=== PATIENT | male | born 1990 | race Caucasian/White ===

== ENCOUNTER 2018-06-11 07:07 | Emergency (ER) | payer MEDICAID ==
--- NOTE | 2018-06-11 07:12 | EDPHY ---
H & P Time Seen by Provider: 06/11/18 07:11 - Medical/Surgical History Hx Diabetes: No - Social History Smoking Status: Never smoked Constitutional: Initial Vital Signs Temperature (C) 36.8 C 06/11/18 07:10 Heart Rate 75 06/11/18 07:10 Respiratory Rate 18 06/11/18 07:10 Blood Pressure 151/101 H 06/11/18 07:10 O2 Sat (%) 97 06/11/18 07:10 O2 Delivery Mode Room Air Allergies/Adverse Reactions: No Known Allergies Allergy (Unverified 08/25/14 11:32) Home Medications: Medication Instructions Recorded NK [No Known Home Meds] 06/11/18 Medical Decision Making - Diagnostics Imaging Results: Imaging Impressions Head CT 06/11/18 07:31 Impression: No acute intracranial findings. If symptoms persist and clinical suspicion warrants, consider MRI. Findings discussed with Florentino Nguyen answering for Juancarlos Reed MD 2018 at 8:07. Imaging: Discussed imaging studies w/ call center representative Radiologist, I viewed and interpreted images myself ED Course/Re-evaluation: CHIEF COMPLAINT: Migraine HISTORY OF PRESENT ILLNESS: The patient is a 27 y/o male complaining of an "indescribable feeling" in his head. The patient woke up at 6:00 am, 1.5 hours ago, and felt like his ear was clogged. He stuck a q-tip in his ear and subsequently developed his symptoms. He states his symptoms are "not a headache" as it is "indescribable" but it is located right above his eyebrows. It feels like "squeezing blood out of a rock" . He gets the symptoms in waves of an "explosion which sends a shock wave through his body". He also is "smelling metals" in his sinuses. The patient's mother states that the patient started a dietary cleanse (eats proteins and vegetables) 4 days ago. Due to this cleanse the patient might dehydrated due to the cleanse. No fever, body aches, lightheadedness, chest pain, heart palpitations, shortness of breath, cough, abdominal pain, urinary or bowel complaints, numbness, paresthesias. REVIEW OF SYSTEMS: A 10 point review of systems was performed and is negative with the exception of the elements mentioned in the history of present illness. PHYSICAL EXAM: HR, BP, O2 Sat, RR. Temp noted General Appearance: Clasping temples with sunglasses on in a dark room, alert, well hydrated, appropriate, and non-toxic appearing. Head: Atraumatic without scalp tenderness or obvious injury Eyes: Pupils equal, round, reactive to light and accommodation, EOMI, no trauma , no injection. Ears: Clear bilaterally, no perforation, normal landmarks Nose: Atraumatic, no rhinorrhea, clear. Throat: There is no erythema or exudates, no lesions, normal tonsils, mucus membranes moist. Neck: Supple, 2+ carotid upstroke, nontender, no lymphadenopathy. Respiratory: No retractions, no distress, no wheezes, and no accessory muscle use. Lungs are clear to auscultation bilaterally. Cardiovascular: Regular rate and rhythm, no murmurs, rubs, or gallops. Bilateral carotid, radial, dorsalis pedis, and posterior tibial pulses intact. Good capillary refill all extremities. Gastrointestinal: Abdomen is soft, nontender, non-distended, no masses, no rebound, no guarding, no peritoneal signs. Musculoskeletal: Normal active ROM of all extremities, atraumatic. Neurological: Alert, appropriate, and interactive. The patient has normal DTRs and non-focal cranial nerves, motor, sensory, and cerebellar exam. Skin: No rashes, good turgor, no nodules on palpation. Past medical history: Asthma Past surgical history: Denies Family history: Denies Social history: Lives in [place],mother at bedside, employed DIAGNOSTICS/PROCEDURES/CRITICAL CARE TIME: Head CT: No acute findings. DIFFERENTIAL DIAGNOSIS: The differential diagnosis for the patient's headache included but was not limited to subarachnoid hemorrhage, migraine headache, tension headache and infectious causes such as meningitis, pharyngitis and sinusitis. MEDICAL DECISION MAKING: The patient is a 27 y/o male presenting with an "indescribable feeling" in his head. The patient woke up at 6:00 am, 1.5 hours ago, and felt like his ear was clogged so he stuck a q-tip in his ear and subsequently developed his symptoms. He states his symptoms are "not a headache" as it is "indescribable" but it is located right above his eyebrows. It feels like "squeezing blood out of a rock" . He gets the symptoms in waves of an "explosion which sends a shock wave through his body". He has a normal physical exam including a normal neuro exam. He is clasping his temples with sunglasses on, in a dark room. Patient will need a head CT as his symptoms started 1.5 hours ago, so the CT will be sensitive enough. Labs and head CT ordered; migraine cocktail administered. 0812: I spoke with Dr. Benites, radiologist, regarding this patient's head CT which is negative. 0845: Reassessed patient an discussed laboratory and imaging findings. He is still ini pain. 0945: Reassessed patient, he is feeling better after medications. Patient most likely had a migraine headache. I have advised him to follow up with a neurologist. Return precautions provided; patient is comfortable with this plan. - Data Points Medications Given: Discontinued Medications Diphenhydramine HCl (Benadryl Injection) 25 mg IVP EDNOW ONE Stop: 06/11/18 08:49 Last Admin: 06/11/18 08:55 Dose: 25 mg Hydromorphone HCl (Dilaudid) 0.5 mg IVP EDNOW ONE Stop: 06/11/18 08:49 Last Admin: 06/11/18 08:57 Dose: 0.5 mg Sodium Chloride (Ns) 1,000 mls @ 0 mls/hr IV EDNOW ONE; Wide Open PRN Reason: Protocol Stop: 06/11/18 07:31 Last Admin: 06/11/18 08:10 Dose: 1,000 mls Sodium Chloride (Ns) 1,000 mls @ 0 mls/hr IV EDNOW ONE; Wide Open PRN Reason: Protocol Stop: 06/11/18 07:31 Last Admin: 06/11/18 08:11 Dose: 1,000 mls Ketorolac Tromethamine (Toradol) 30 mg IVP EDNOW ONE Stop: 06/11/18 07:29 Last Admin: 06/11/18 08:14 Dose: 30 mg Methylprednisolone Sodium Succinate (Solu-Medrol) 125 mg IVP EDNOW ONE Stop: 06/11/18 07:29 Last Admin: 06/11/18 08:13 Dose: 125 mg Metoclopramide HCl (Reglan Injection) 10 mg IVP EDNOW ONE Stop: 06/11/18 07:29 Last Admin: 06/11/18 08:16 Dose: 10 mg Departure - Departure Disposition: Home, Routine, Self-Care Clinical Impression: Migraine Qualifiers: Migraine type: without aura Status migrainosus presence: without status migrainosus Intractability: intractable Qualified Code(s): G43.019 - Migraine without aura, intractable, without status migrainosus Condition: Good Instructions: Migraine Headache (ED) Additional Instructions: 1. Follow-up with a neurologist within 1 week. 2. Return to the emergency department immediately for recurrence of headache, nausea, vomiting, numbness, weakness, neck pain, fever or other concerns. Referrals: Mikey Anguiano MD [Medical Doctor] - As per Instructions Report Scribed for: Juancarlos Reed Report Scribed by: Holly Taylor Date of Report: 06/11/18 Time of Report: 08:46
[2018-06-11] MEDS ORDERED: KETOROLAC 30 MG/1 ML SDV IVP ONE (07:28)
[2018-06-11] MEDS ORDERED: methylPREDNISolone SOD SUCC 125 MG/2 ML VIAL IVP ONE (07:28)
[2018-06-11] MEDS ORDERED: METOCLOPRAMIDE 10 MG/2 ML VIAL IVP ONE (07:28)
[2018-06-11] MEDS ORDERED: NS 1,000 ML IV ONE ×2 (07:30)
[2018-06-11] MEDS ORDERED: HYDROmorphONE/DILAUDID 2 MG/ML INJ IVP ONE (08:48)
[2018-06-11 10:03] VITALS: BP 124/67
== END 2018-06-11 10:28 | disposition home or self-care (01) ==
DX: G43.019 Migraine without aura, intractable, without status migrainosus (principal); E86.9 Volume depletion, unspecified
CPT/HCPCS: 96374; J1170; J1200; J1885; J2765; J2930